=== PATIENT | female | born 1955 | race Caucasian/White ===

== ENCOUNTER 2017-06-16 07:24 | Day surgery (SDC) | payer MEDICAID ==
[~2017-06-16] VITALS: Ht 157.5 cm; Wt 52.6 kg
[~2017-06-16 07:24] MED LIST: AMLO10TA80 PO; CYCL5TAB PO; GLIP10TA10 PO; INSU3INS6 SQ; LORA10TA7 PO; LOSA50TA20 PO; METF10002 PO; OLOP2.5D BOTHEYE; SIMV20TA6 PO
[2017-06-16] MEDS ORDERED: CYCLOPENTOLATE HCL 1% OPHTH DROPS 2ML LEFTEYE ONE (08:30)
[2017-06-16] MEDS ORDERED: PHENYLEPHRINE HCL 10% OPHTH DROPS 5ML LEFTEYE ONE (08:30)
[2017-06-16] MEDS ORDERED: TROPICAMIDE 1% OPHTH DROPS 15ML LEFTEYE ONE (08:30)
[2017-06-16] MEDS ORDERED: LACTATED RINGERS 1,000 ML IV SCH (08:45)
[2017-06-16] MEDS ORDERED: BALANCED SALT IRRIG SOLN 15ML ONE (09:16)
[2017-06-16] MEDS ORDERED: LIDOCAINE HCL/PF 2% 20 MG/ML 10ML VIAL ONE (09:16)
[2017-06-16] MEDS ORDERED: CIPROFLOXACIN 0.3% OPHTH SOLN 2.5ML ONE (09:16)
[2017-06-16] MEDS ORDERED: NEO/POLYMYX B SULF/DEXAMETH OPHTH OINT 3.5GM ONE (09:16)
[2017-06-16] MEDS ORDERED: TETRACAINE 0.5% OPHTH DROPS 4ML ONE (09:16)
[2017-06-16] MEDS ORDERED: PREDNISOLONE ACETATE 1% OPHTH DROPS 1ML ONE (09:16)
[2017-06-16] MEDS ORDERED: PROPOFOL 200MG/20ML VIAL IV ONE (10:33)
[2017-06-16] MEDS ORDERED: FENTANYL CITRATE/PF 50MCG/ML 2ML VIAL ONE (10:42)
[2017-06-16] MEDS ORDERED: SODIUM CHLORIDE 0.9% 1,000 ML IV SCH (10:51)
[2017-06-16] MEDS ORDERED: ONDANSETRON HCL 4MG/2ML VIAL IV PRN (11:00)
[2017-06-16] MEDS ORDERED: MORPHINE SULFATE 2 MG/ML CPJ (NOT FOR IM USE) IV PRN (11:00)
[2017-06-16] MEDS ORDERED: ATOR40TA70 PO (11:33)
[2017-06-16] MEDS ORDERED: METO-396 PO (11:33)
[2017-06-16] MEDS ORDERED: RANI150T7 PO (11:33)
[2017-06-16] MEDS ORDERED: METF500T4 PO (11:33)
[2017-06-16] MEDS ORDERED: RAMI5CAP17 PO (11:33)
[2017-06-16] MEDS ORDERED: ASPI-1159 PO (11:33)
== END 2017-06-16 14:30 | disposition home or self-care (01) ==
LOC: OR 07:24
PROVIDERS: ATTEND Ophthalmology
DX: E11.36 Type 2 diabetes mellitus with diabetic cataract (principal); J45.909 Unspecified asthma, uncomplicated; K21.9 Gastro-esophageal reflux disease without esophagitis; I10 Essential (primary) hypertension; Z86.73 Personal history of transient ischemic attack (TIA), and cerebral infarction without residual deficits; E78.5 Hyperlipidemia, unspecified; D64.9 Anemia, unspecified
CPT/HCPCS: 66984; 82962; J2405; J3010; J3490; J7120; V2632; J2704